=== PATIENT | female | born 1935 | race Caucasian/White ===

== ENCOUNTER 2022-03-13 21:33 | Emergency (ER) | payer OTHER ==
[~2022-03-13] VITALS: Ht 157.5 cm; Wt 74.4 kg
[2022-03-13 21:46] VITALS: BP_SYST 169
[2022-03-13 22:41] LABS: BASOPHILS # (AUTO) 0.1 K/uL (0.0-0.2); BASOPHILS % (AUTO) 0.5 % (0.0-2.0); EOSINOPHILS # (AUTO) 0.1 K/uL (0.0-0.4); EOSINOPHILS % (AUTO) 0.5 % (0.0-4.0); HEMATOCRIT 37.9 % (36-48); LYMPHOCYTES # (AUTO) 1.1 K/uL (1.0-5.5); LYMPHOCYTES % (AUTO) 5.9 % (20.5-51.5); MEAN CORPUSCULAR VOLUME 86 fL (79.0-98.0); MONOCYTES # (AUTO) 0.8 K/uL (0.0-1.0); NEUTROPHILS % (AUTO) 89.1 % (40.0-70.0); PLATELET COUNT (AUTO) 362 K/uL (130-430); RED BLOOD CELL COUNT(AUTO) 4.41 MIL/uL (4.2-6.2); RED CELL DISTRIBUTION WIDTH 15.1 % (9.0-15.0); WHITE BLOOD COUNT (AUTO) 19.1 K/uL (4.8-10.8)
[2022-03-13 23:02] LABS: ANION GAP 8 (5-15); CALCIUM 8.7 mg/dL (8.4-11.0); CHLORIDE 102 mmol/L (98-107); GLUCOSE 136 mg/dL (70-99); UREA NITROGEN, BLOOD 24 mg/dL (8-21)
[2022-03-13 23:09] LABS: PROTHROMBIN TIME 10.1 SECS (9.5-12.5)
[2022-03-13 23:19] LABS: ACETAMINOPHEN 1 ug/mL (1-30); ALANINE AMINOTRANSFERASE 17 U/L (12-78); ALBUMIN 3.4 g/dL (3.4-4.8); ALCOHOL, BLOOD < 3 mg/dL (<10); ASPARTATE AMINOTRANSFERASE 13 U/L (10-37); TOTAL BILIRUBIN 0.8 mg/dL (0.0-1.0)
[2022-03-13] MEDS: BACITRACIN ZINC 15 GM TOPICAL OINTMENT TP SCH (23:45)
[2022-03-14] MEDS ORDERED: ONDANSETRON 4 MG ODT TAB ONE (00:52)
[2022-03-14] MEDS ORDERED: ONDANSETRON 4 MG ODT TAB PO ONE (01:00)
[2022-03-14 01:48] LABS: WHITE BLOOD COUNT (AUTO) 20.7 K/uL (4.8-10.8)
[2022-03-14 01:49] LABS: RED BLOOD CELL COUNT(AUTO) 4.49 MIL/uL (4.2-6.2)
[2022-03-14 01:50] LABS: HEMATOCRIT 39.2 % (36-48); MEAN CORPUSCULAR VOLUME 87 fL (79.0-98.0); PLATELET COUNT (AUTO) 380 K/uL (130-430)
[2022-03-14] MEDS ORDERED: AZITHROMYCIN 250 MG TABLET PO ONE (02:45)
[2022-03-14 02:55] LABS: BILIRUBIN,URINE NEGATIVE (NEGATIVE); BLOOD, URINE NEGATIVE (NEGATIVE); CLARITY/URINE CLEAR (CLEAR); COLOR,URINE YELLOW (YELLOW); GLUCOSE,URINE NEGATIVE (NEGATIVE); KETONES,URINE TRACE (NEGATIVE); LEUKOCYTE ESTERASE ,URINE NEGATIVE (NEGATIVE); NITRITE, URINE NEGATIVE (NEGATIVE); PROTEIN URINE NEGATIVE (NEGATIVE); UROBILINOGEN,URINE 0.2 (0.2-1.0)
[2022-03-14 03:03] LABS: BACTERIA,URINE None Seen /HPF (None Seen); RBC,URINE 0-3 /HPF (0-3); WBC,URINE 0-3 /HPF (0-3)
[2022-03-14 03:04] LABS: MUCUS,URINE 1+ /LPF (None Seen)
[2022-03-14 03:09] LABS: BARBITURATE, URINE NEGATIVE (NEG <=200); BENZODIAZEPINE, URINE NEGATIVE (NEG <=150); CANNABINOID, URINE NEGATIVE (NEG <=50); COCAINE, URINE NEGATIVE (NEG <=150); METHAMPHETAMINES SCREEN,URINE NEGATIVE (NEG <=500); OPIATE, URINE NEGATIVE (NEG <=100); PHENCYCLIDINE SCREEN,URINE NEGATIVE (NEG <=25); UR TRICYCLIC ANTIDEPRESSANTS NEGATIVE (NEG <=300); URINE AMPHETAMINE NEGATIVE (NEG <=500); URINE METHADONE NEGATIVE (NEG <=200); URINE OXYCODONE SCREEN NEGATIVE (NEG <=100); URINE PROPOXYPHENE SCREEN NEGATIVE (NEG <=300)
[2022-03-14] MEDS ORDERED: ONDANSETRON HCL 4 MG/2 ML VIAL ONE (03:55)
[2022-03-14] MEDS ORDERED: AZITHROMYCIN 500 MG in NS 250 ML IV ONE (04:00)
[2022-03-14] MEDS ORDERED: NACL 0.9% 1,000 ML IV ONE (04:00)
[2022-03-14] MEDS ORDERED: CEFEPIME 1 GM in D5W 50 ML IV ONE (04:00)
[2022-03-14] MEDS ORDERED: ONDANSETRON HCL 4 MG/2 ML VIAL IVP ONE (04:00)
[2022-03-14] MEDS ORDERED: CEFEPIME 1 GM/VIAL (MAXIPIME) ONE (04:32)
[2022-03-14] MEDS ORDERED: AZITHROMYCIN 500 MG/VIAL (ZITHROMAX) IV ONE (05:05)
[2022-03-14] MEDS: BACITRACIN ZINC 15 GM TOPICAL OINTMENT TP SCH (09:15)
[2022-03-14 16:26] LABS: HEMOGLOBIN 12.9 g/dL (12.0-16.0); MEAN CORPUSCULAR HEMOGLOBIN 29 pg (27-31); MEAN CORPUSCULAR HGB CONC 32 % (32-36)
[2022-03-15 01:09] LABS: HEMATOCRIT 36.5 % (36-48); MEAN CORPUSCULAR VOLUME 87 fL (79.0-98.0); PLATELET COUNT (AUTO) 340 K/uL (130-430); RED BLOOD CELL COUNT(AUTO) 4.18 MIL/uL (4.2-6.2); RED CELL DISTRIBUTION WIDTH 14.5 % (9.0-15.0); WHITE BLOOD COUNT (AUTO) 12.2 K/uL (4.8-10.8)
[2022-03-15 01:26] LABS: ANION GAP 7 (5-15); CALCIUM 8.7 mg/dL (8.4-11.0); CHLORIDE 107 mmol/L (98-107); CREATININE 0.96 mg/dL (0.55-1.30); GLUCOSE 122 mg/dL (70-99); POTASSIUM 3.8 mmol/L (3.5-5.1); UREA NITROGEN, BLOOD 11 mg/dL (8-21)
[2022-03-15 01:33] LABS: ALANINE AMINOTRANSFERASE 16 U/L (12-78); ALBUMIN 2.9 g/dL (3.4-4.8); ASPARTATE AMINOTRANSFERASE 13 U/L (10-37); TOTAL BILIRUBIN 1.9 mg/dL (0.0-1.0)
[2022-03-15 03:18] VITALS: BP_SYST 175
[2022-03-15 18:03] LABS: HEMOGLOBIN 12.2 g/dL (12.0-16.0); MEAN CORPUSCULAR HEMOGLOBIN 29 pg (27-31); MEAN CORPUSCULAR HGB CONC 32 % (32-36)
== END 2022-03-15 03:18 | disposition short-term general hospital (02) ==
LOC: SED 21:33
DX: S06.0X0A Concussion without loss of consciousness, initial encounter (principal); S22.029A Unspecified fracture of second thoracic vertebra, initial encounter for closed fracture; S13.4XXA Sprain of ligaments of cervical spine, initial encounter; S60.222A Contusion of left hand, initial encounter; S60.221A Contusion of right hand, initial encounter; S29.9XXA Unspecified injury of thorax, initial encounter; S39.91XA Unspecified injury of abdomen, initial encounter; S63.502A Unspecified sprain of left wrist, initial encounter; A41.9 Sepsis, unspecified organism; J18.9 Pneumonia, unspecified organism; D72.829 Elevated white blood cell count, unspecified; Z79.899 Other long term (current) drug therapy; Z20.822 Contact with and (suspected) exposure to COVID-19; W01.0XXA Fall on same level from slipping, tripping and stumbling without subsequent striking against object, initial encounter; Y93.89 Activity, other specified; Y92.89 Other specified places as the place of occurrence of the external cause; Y99.8 Other external cause status
CPT/HCPCS: 99285; 70450; 96365; 71045; 96367; 96375; 87426; 80307; 81000; 85014; 85025; 85049; 85610; 85730; 87040; 84484; 36415; 93005; 73100; 72125; 76376 ×2; 83605; 71260; 72128; 74177; 80053; 85048; 83051; G0482; Q0162; J0456; J0692; J2405; Q9967; G0480; G0481; 99284; Q0144